=== PATIENT | male | born 1965 | race Hispanic/Latino ===

== ENCOUNTER 2018-03-25 18:22 | Emergency (ER) | payer SELFPAY ==
[~2018-03-25] VITALS: Ht 188 cm; Wt 99.0 kg
[~2018-03-25 18:22] MED LIST: AMLODIPINE10 MG PO; CEPHALEXIN500 MG PO; CLONIDINE0.1 MG PO; CLONIDINE0.2 MG OR; KLOR-CON M2020 MEQ PO
[2018-03-25] MEDS ORDERED: LISINOPRIL10 MG PO (18:37)
[2018-03-25 18:59] LABS: HEMATOCRIT 43.5 % (39.0-50.0); IMMATURE GRANULOCYTES 0.3 % (0.0-5.0); MEAN CELL VOLUME 88.6 fL CALC (80.0-100.0); MEAN CORPUSCULAR HGB 30.5 pG CALC (26.0-32.0); MEAN CORPUSCULAR HGB CONC 34.5 g/L CALC (32.0-36.0); NEUT# 3.69 thou/uL (1.82-7.42); RED BLOOD COUNT 4.91 mill/uL (4.70-6.10); RED CELL DISTRI WIDTH 13.2 % (11.5-15.5)
[2018-03-25 19:10] LABS: ALBUMIN 4.5 g/dL (3.2-5.0); ALKALINE PHOSPHATASE 114 u/l (38-126); ANION GAP 16 (6-22 (CALC)); BILIRUBIN, TOTAL 0.5 mg/dL (0.0-1.4); BUN 16 mg/dL (9-20); BUN/CREATININE RATIO 20 (12-20 (CALC)); CARBON DIOXIDE 20 mmol/l (22-30); CHLORIDE 108 mmol/l (95-108); CREATININE 0.8 mg/dL (0.7-1.3); GFR > 60 ML/MIN (>=60 (CALC)); GFR FOR AFR.AMER. > 60 ML/MIN (>=60 (CALC)); POTASSIUM 4.3 mmol/l (3.5-5.1); SGOT/AST 31 u/l (17-59); SODIUM 140 mmol/l (137-146); TOTAL PROTEIN 7.6 g/dL (6.3-8.2)
[2018-03-25 19:39] LABS: URINE BILIRUBIN - DIPSTICK NEGATIVE (NEGATIVE); URINE BLOOD DIPSTICK NEGATIVE (NEGATIVE); URINE CLARITY CLEAR; URINE COLOR YELLOW; URINE GLUCOSE - DIPSTICK NEGATIVE (NEGATIVE); URINE KETONE NEGATIVE (NEGATIVE); URINE LEUK ESTERASE NEGATIVE (NEGATIVE); URINE NITRITE - DIPSTICK NEGATIVE (Negative); URINE PH 5.5 (4.5-8.0); URINE PROTEIN - DIPSTICK NEGATIVE (NEG-TRACE); URINE SPECIFIC GRAVITY >=1.030; URINE UROBILINOGEN - DIPSTICK 0.2 E.U./dL (0.2)
[2018-03-25] MEDS ORDERED: FAMCICLOVIR500 MG PO ×2 (21:11→21:18)
[2018-03-25] MEDS ORDERED: MEDDOSEPAK PO ×2 (21:11→21:18)
[2018-03-25 21:20] VITALS: BP 155/89
== END 2018-03-25 21:29 | disposition home or self-care (01) | DRG 74 ==
LOC: ED 18:22
PROVIDERS: Emergency Medicine
DX: G51.0 Bell's palsy (principal); R29.810 Facial weakness; R51 Headache; I10 Essential (primary) hypertension

== ENCOUNTER 2023-06-30 18:20 | Emergency (ER) | payer SELFPAY ==
[~2023-06-30] VITALS: Ht 188 cm; Wt 99.7 kg
[2023-06-30] VITALS (8 sets, daily range): BP systolic 123–142; BP diastolic 77–92
[~2023-06-30 18:20] MED LIST changes: +FAMCICLOVIR500 MG PO; +LISINOPRIL10 MG PO; +MEDDOSEPAK PO
[2023-06-30] MEDS ORDERED: cefTRIAXone SODIUM 2 GM in SODIUM CHLORIDE 0.9% 100 ML IV ONE (18:30)
[2023-06-30] MEDS ORDERED: SODIUM CHLORIDE 0.9% 1,000 ML IV ONE (18:30)
[2023-06-30 19:11] LABS: BASO% 0.4 % (0-3); EOS% 1.9 % (0-8); HEMATOCRIT 43.8 % (39.0-50.0); HEMOGLOBIN 15.1 g/dl (14.0-18.0); IMMATURE GRANULOCYTES 0.1 % (0.0-5.0); LYMPH% 16.8 % (15-41); MEAN CORPUSCULAR HGB 30.7 pG CALC (26.0-32.0); MEAN CORPUSCULAR HGB CONC 34.5 g/dL CAL (32.0-36.0); MONO% 11.9 % (2-13); NEUT# 7.44 thou/uL (1.82-7.42); NEUT% 68.9 % (42-76); RED BLOOD COUNT 4.92 mill/uL (4.70-6.10)
[2023-06-30 19:21] LABS: ALBUMIN 4.5 g/dL (3.2-5.0); ALKALINE PHOSPHATASE 122 u/l (38-126); ANION GAP 12 (6-22 (CALC)); BUN 12 mg/dL (9-20); BUN/CREATININE RATIO 14 (12-20 (CALC)); CARBON DIOXIDE 23 mmol/l (22-30); CHLORIDE 108 mmol/l (95-108); CREATININE 0.9 mg/dL (0.7-1.3); GFR FOR AFR.AMER. > 60 ML/MIN (>=60 (CALC)); GFR OTHER RACES > 60 ML/MIN (>=60 (CALC)); SGOT/AST 46 u/l (17-59); SODIUM 139 mmol/l (137-146); TOTAL PROTEIN 7.3 g/dL (6.3-8.2)
[2023-06-30 19:25] LABS: BILIRUBIN, TOTAL 1.1 mg/dL (0.2-1.3)
[2023-06-30] MEDS ORDERED: AMOX/K CLAV875 M1 PO (22:33)
[2023-06-30] MEDS ORDERED: AMOXICILLIN & POT CLAVULANATE 875 MG/TAB PO ONE (22:35)
== END 2023-06-30 22:45 | disposition home or self-care (01) | DRG 156 ==
LOC: ED 18:20
PROVIDERS: Family Medicine
DX: K11.21 Acute sialoadenitis (principal); I10 Essential (primary) hypertension; F17.200 Nicotine dependence, unspecified, uncomplicated; Z20.822 Contact with and (suspected) exposure to COVID-19
CPT/HCPCS: Q9967